=== PATIENT | female | born 1965 | race Asian ===

== ENCOUNTER 2017-03-21 10:19 | Outpatient (CLI) | payer OTHER | END 2017-03-21 10:20 | disposition home or self-care (01) | DX: Z12.31 Encounter for screening mammogram for malignant neoplasm of breast (principal) ==

== ENCOUNTER 2017-11-15 07:11 | Day surgery (SDC) | payer OTHER ==
[2017-11-15] MEDS ORDERED: LACTATED RINGERS 1,000 ML IV ONE ×2 (07:51→10:08)
[2017-11-15] MEDS ORDERED: KETAMINE 500 MG/10 ML VIAL IVP ONE (09:00)
[2017-11-15] MEDS ORDERED: MIDAZOLAM 2 MG/2 ML VIAL IVP ONE (09:00)
[2017-11-15] MEDS ORDERED: GLYCOPYRROLATE 1 MG/5 ML VIAL IVP ONE (09:00)
[2017-11-15] MEDS ORDERED: KETOROLAC 30 MG/ML VIAL IVP ONE (09:00)
[2017-11-15] MEDS ORDERED: SODIUM CHLORIDE 0.9% 10 ML VIAL IV ONE (09:00)
[2017-11-15] MEDS ORDERED: BUPIVACAINE 0.25% PF 30 ML VIAL SUBQ ONE ×2 (09:08)
[2017-11-15] MEDS ORDERED: LIDOCAINE 1%-EPI 1:100000 30 ML MDV SUBQ ONE ×2 (09:08)
[2017-11-15] MEDS ORDERED: ONDANSETRON 4 MG/2 ML VIAL ONE (10:11)
[2017-11-15] MEDS ORDERED: PROMETHAZINE 25 MG/1 ML VIAL ONE (10:50)
[2017-11-15 11:35] VITALS: BP 152/81
--- NOTE | 2017-11-15 11:50 | OPERATIVE REPORT ---
DATE OF SERVICE: 11/15/2017 Physician: Konstantin Baldwin MD DATE OF SURGERY: [SERVICE DATE:MM/FLAKITA/YYYY] 11/15/2017 PREOPERATIVE DIAGNOSIS: Right hand carpal tunnel syndrome. POSTOPERATIVE DIAGNOSIS: Right hand carpal tunnel syndrome. PROCEDURE PERFORMED: Right carpal tunnel release. OPERATING SURGEON: Konstantin Baldwin ANESTHESIA: Local, MAC by Elmo. INDICATIONS FOR SURGERY Christy is a 52-year-old female with progressive chronic carpal tunnel syndrome of her right hand. She has failed conservative treatment and carpal tunnel release is recommended. DESCRIPTION OF OPERATIVE PROCEDURE: The patient was taken to the operating room, given a conscious s edation anesthetic, after which her hand and arm were sterilely prepped and draped in standard fashion. The patient's carpal tunnel area was marked with a marking pen. Surgical timeout was undertaken after which infilt ration was performed with 0.25% Marcaine with epinephrine and 1% lidocaine plain approximately 8 mL. This wa s infiltrated in and around the carpal tunnel and the soft tissues. Following this, and adequate anesth etic time the incision was made in the palm approximately 1.5 inches in length, taken through skin and subcutan eous tissue dividing the transverse carpal ligament and exposing the carpal tunnel contents. The dissecti on was carried at its distal extent to the superficial arch and at the proximal extent to the distal wrist f lexion crease. The area was flushed and irrigated. There was no abnormality otherwise in the tunnel and cl osure was with a 4-0 nylon interrupted. Sterile dressings were applied to the hand. The patient was then take n to recovery room in stable condition. ESTIMATED BLOOD LOSS: Minimal. COMPLICATIONS: None. SPONGE AND NEEDLE COUNTS: Correct. TD: 11/15/2017 12:49
== END 2017-11-15 07:12 | disposition home or self-care (01) ==
LOC: SDS 07:11
PROVIDERS: ATTEND Orthopaedic Surgery
PROC: 01N50ZZ Release Median Nerve, Open Approach (ICD-10-PCS; principal; 2017-11-15 08:30)
DX: G56.01 Carpal tunnel syndrome, right upper limb (principal); Z79.82 Long term (current) use of aspirin; I10 Essential (primary) hypertension
CPT/HCPCS: 64721; J7120

== ENCOUNTER 2018-02-07 14:04 | Outpatient (CLI) | payer OTHER ==
--- NOTE | 2018-02-07 14:38 | XRAY Report ---
CHEST, TWO VIEWS: 02/07/2018 FINDINGS: Calcified right upper lobe granuloma. Lungs otherwise clear. No pleural effusion or pneumothorax. Minor age-related changes in the spine. IMPRESSION: NO ACUTE FINDINGS. TD: 02/07/2018 14:37
== END 2018-02-07 14:05 | disposition home or self-care (01) ==
LOC: DI 14:04
PROVIDERS: ATTEND Family Medicine
DX: J20.9 Acute bronchitis, unspecified (principal)
CPT/HCPCS: 71046

== ENCOUNTER 2018-04-11 08:42 | Outpatient (CLI) | payer OTHER ==
--- NOTE | 2018-04-12 11:00 | Mammography Report ---
DIGITAL SCREENING MAMMOGRAM: 04/11/2018 TECHNIQUE: Bilateral digital CC and MLO projections with an exaggerated left CC view. COMPARISON: 03/21/2017, 04/11/2015, 07/07/2011, and 01/28/2010. FINDINGS: The breast tissue is heterogeneously dense. There is no dominant mass, architectural distortion, skin thickening, suspicious microcalcifications or interval change. IMPRESSION: NEGATIVE. BI-RADS CATEGORY 1 - NEGATIVE. RETURN TO ROUTINE SCREENING IN 12 MONTHS. STANDARD QUALIFYING STATEMENTS: 1. This examination was reviewed with the aid of Computer-Aided Detection (CAD). 2. A negative or benign imaging report should not delay biopsy if clinically suspicious findings are present. Consider surgical consultation if warranted. More than 5% of cancers are not identified by imaging. 3. Dense breasts may obscure an underlying neoplasm. TD: 04/12/2018 09:53
== END 2018-04-11 08:43 | disposition home or self-care (01) ==
LOC: DI.N 08:42
PROVIDERS: ATTEND Physician Assistant
DX: Z12.31 Encounter for screening mammogram for malignant neoplasm of breast (principal)
CPT/HCPCS: 77067

== ENCOUNTER 2019-08-13 05:53 | Day surgery (SDC) | payer BC ==
[2019-08-13] MEDS ORDERED: LACTATED RINGERS 1,000 ML IV ONE (06:26)
[2019-08-13 08:53] VITALS: BP 116/83
== END 2019-08-13 05:54 | disposition home or self-care (01) ==
LOC: SDS 05:53
PROVIDERS: ATTEND Internal Medicine Gastroenterology
PROC: 0DJD8ZZ Inspection of Lower Intestinal Tract, Via Natural or Artificial Opening Endoscopic (ICD-10-PCS; principal; 2019-08-13 07:30)
DX: Z12.11 Encounter for screening for malignant neoplasm of colon (principal); Z80.3 Family history of malignant neoplasm of breast; F17.200 Nicotine dependence, unspecified, uncomplicated; I10 Essential (primary) hypertension; Z79.899 Other long term (current) drug therapy; Z79.82 Long term (current) use of aspirin; Z79.51 Long term (current) use of inhaled steroids
CPT/HCPCS: 45378; J7120

== ENCOUNTER 2020-03-10 18:54 | Outpatient (CLI) | payer BC | END 2020-03-10 18:55 | disposition home or self-care (01) | LOC: COV 18:54 | PROVIDERS: ATTEND Family Medicine | DX: Z20.828 Contact with and (suspected) exposure to other viral communicable diseases (principal) | CPT/HCPCS: 81599 ==

== ENCOUNTER 2020-07-28 10:54 | Outpatient (CLI) | payer BC ==
--- NOTE | 2020-07-30 08:13 | Mammography Report ---
BILATERAL DIGITAL SCREENING MAMMOGRAM 3D/2D: 07/28/2020 CLINICAL: Routine screening. Comparison is made to exams dated: 04/11/2018 mammogram, 03/21/2017 mammogram, and 04/11/2015 mammogram - [facility]. The tissue of both breasts is heterogeneously dense. This may lower t he sensitivity of mammography. No significant masses, calcifications, or other findings are seen in either breast. There has been no significant interval change. IMPRESSION: NEGATIVE There is no mammographic evidence of malignancy. A 1 year screening mammogram is recommended. This exam was interpreted at Station ID: [id number]. NOTE: For mammograms, a report in lay terms will be sent to the patient. Approximately 15% of breast malignancies will not be visualized mammographically. In the management of a palpable breast mass, a negative mammogram must not discourage biopsy of a clinically suspicious lesion. Electronically Signed By: Tremayne Short M.D. aty/penrad:07/28/2020 18:27:04 ACR BI-RADS Category 1: Negative 3341F PARENCHYMAL PATTERN: (D) - The breast(s) demonstrate(s) heterogeneously dense fibroglandular oziel shah. BI-RADS CATEGORY: (1) - 1 RECOMMENDATION: (ANNUAL) - Recommend routine annual screening mammography. [id number] 1 year screening LATERALITY: (B)
== END 2020-07-28 10:55 | disposition home or self-care (01) ==
LOC: DI.N 10:54
PROVIDERS: ATTEND Family Medicine
DX: Z12.31 Encounter for screening mammogram for malignant neoplasm of breast (principal)
CPT/HCPCS: 77063; 77067

== ENCOUNTER 2023-02-14 09:11 | Outpatient (CLI) | payer OTHER ==
--- NOTE | 2023-02-16 09:15 | Mammography Report ---
BILATERAL DIGITAL SCREENING MAMMOGRAM 3D/2D: 02/14/2023 CLINICAL: Routine screening. Comparison is made to exams dated: 07/28/2020 mammogram, 04/11/2018 mammogram, 03/21/2017 mammogram, 04/11 mammogram, 07/07/2011 mammogram, and 01/28/2010 mammogram - [facility]. There are scattered areas of fibroglandular density in both breasts (category b / 25%-50% glandular t issue). No significant masses, calcifications, or other findings are seen in either breast. There has been no significant interval change. IMPRESSION: NEGATIVE There is no mammographic evidence of malignancy. A 1 year screening mammogram is recommended. Based on the Tyrer Cuzick model (a risk assessment model) the patients lifetime risk is 8.7% and her 10 year risk is 3.2%. According to the ACR, ACS, and NCCN guidelines, an annual breast MRI exam gilmer g with mammogram is recommended if the patients lifetime risk is 20% or greater. This exam was interpreted at Station ID: [id number]. NOTE: For mammograms, a report in lay terms will be sent to the patient. Approximately 15% of breast malignancies will not be visualized mammographically. In the management of a palpable breast mass, a negative mammogram must not discourage biopsy of a clinically suspicious lesion. Electronically Signed By: Tremayne moore/jh:02/16/2023 08:20:27 letter sent: No_Letter ACR BI-RADS Category 1: Negative 3341F PARENCHYMAL PATTERN: (A) - The breast(s) demonstrate(s) scattered fibroglandular densities. BI-RADS CATEGORY: (1) - 1 Mammogram [id number] 1 year screening LATERALITY: (B)
== END 2023-02-14 09:12 | disposition home or self-care (01) ==
LOC: DI.N 09:11
DX: Z12.31 Encounter for screening mammogram for malignant neoplasm of breast (principal)

== ENCOUNTER 2024-03-15 12:51 | Outpatient (CLI) | payer OTHER ==
--- NOTE | 2024-03-16 09:53 | Mammography Report ---
BILATERAL DIGITAL SCREENING MAMMOGRAM 3D/2D: 03/15/2024 CLINICAL: Routine screening. Comparison is made to exams dated: 02/14/2023 mammogram, 07/28/2020 mammogram, 04/11/2018 mammogram, 03/07 mammogram, 04/11/2015 mammogram, and 07/07/2011 mammogram - [facility]. There are scattered areas of fibroglandular density in both breasts (category b / 25%-50% glandular t issue). No significant masses, calcifications, or other findings are seen in either breast. There has been no significant interval change. IMPRESSION: NEGATIVE There is no mammographic evidence of malignancy. A 1 year screening mammogram is recommended. Based on the Tyrer Cuzick model (a risk assessment model) the patient's lifetime risk is 8.6% and her 10 year risk is 3.3%. According to the ACR, ACS, and NCCN guidelines, an annual breast MRI exam gilmer g with mammogram is recommended if the patient's lifetime risk is 20% or greater. This exam was interpreted at Station ID: [id number]. NOTE: For mammograms, a report in lay terms will be sent to the patient. Approximately 15% of breast malignancies will not be visualized mammographically. In the management of a palpable breast mass, a negative mammogram must not discourage biopsy of a clinically suspicious lesion. Electronically Signed By: Belinda crenshaw/jh:03/15/2024 13:38:30 letter sent: No_Letter ACR BI-RADS Category 1: Negative 3341F PARENCHYMAL PATTERN: (A) - The breast(s) demonstrate(s) scattered fibroglandular densities. BI-RADS CATEGORY: (1) - 1 RECOMMENDATION: (ANNUAL) - Recommend routine annual screening mammography. [id number] 1 year screening LATERALITY: (B)
== END 2024-03-15 12:52 | disposition home or self-care (01) ==
LOC: DI.N 12:51
DX: Z12.31 Encounter for screening mammogram for malignant neoplasm of breast (principal); R92.323 Mammographic fibroglandular density, bilateral breasts